=== PATIENT | female | born 1985 | race Two or more races ===

== ENCOUNTER 2024-10-17 16:00 | Emergency (ER) | payer OTHER, SELFPAY ==
[2024-10-17 16:01] VITALS: BP 144/96; PULSE 87; RESP 14; TEMP 36.1; O2SAT 100
--- NOTE | 2024-10-17 16:29 | RAD_ITS ---
PROCEDURE: KNEE 3 VIEWS REASON FOR EXAM: Pain TECHNIQUE: Three views left knee COMPARISON: None. FINDINGS: No fracture. No suspicious bone lesion. Normal alignment. No effusion. Soft tissues are unremarkable. RAD/Knee 3 Views IMPRESSION: NEGATIVE KNEE SERIES Reading Location: [facility]
[2024-10-17] MEDS: Acetaminophen 500 MG Tablet 1000 MG PO (16:44)
--- NOTE | 2024-10-17 16:47 | EX.ED.DYSGE1 ---
HPI History of Present Illness Chief Complaint: Lower Extremity Injury Narrative Narrative: Patient is a 39-year-old female with past medical history of seizures on Keppra who presents to the emergency department with a chief complaint of left lower knee and leg pain. Patient states that for the past 3 days she has had increasing pain her doctor sent her here concern for a blood clot. Patient denies any recent travel history denies history of blood clots for self. Patient denies any trauma or injury to the left lower extremity no recent surgeries. PFSH PFSH Home Medications ?Medication ?Instructions ?Recorded ?Last Taken ?Type atorvastatin 10 mg tablet (Lipitor) 10 mg PO DAILY 10/18/21 Unknown History levetiracetam 250 mg tablet 250 mg PO BID 10/18/21 Unknown History (Keppra) Allergy/AdvReac Type Severity Reaction Status Date / Time No Known Allergies Allergy Verified 10/17/24 16:00 Social History Smoking Status: Never smoker ROS ROS ED ROS Narrative Constitutional: Denies any fevers, chills, headaches, lightness, dizziness Cardiovascular: Denies chest pain or palpitations Respiratory: Denies coughing shortness of breath Abdomen: Denies abdominal pain Neurological: Denies numbness, weakness, tingling Musculoskeletal: Complains of left knee and lower extremity pain as noted above Skin: Denies rashes or lesions EXAM Physical Exam Narrative Exam Narrative: General: Patient was lying in bed rest comfortably did not appear to be in acute distress Head: Atraumatic, normocephalic Eyes: PERRL bilaterally, EOMI bilaterally, no conjunctival injection noted Neck: Soft, supple, trachea midline Cardiovascular: Regular rate and rhythm no murmurs gallops rubs noted Respiratory: Clear to auscultation bilaterally Musculoskeletal: Pain with attempted range of motion of her left knee, compartment soft and compressible Extremities: DP pulses +2/4 in the bilateral lower extremities Neurological: Patient following commands and that she was at [facility] years 2024 sensation grossly intact Skin: Mood affect appropriate Const Vital Signs: 10/17/24 16:01 10/17/24 18:00 Temperature 97 F L Temperature Source Temporal Pulse Rate 87 81 Respiratory Rate 14 18 Blood Pressure 144/96 H 136/85 H Blood Pressure Mean 112 102 Pulse Ox 100 99 Oxygen Delivery Method Room Air MDM MDM MDM Narrative Medical decision making narrative: Patient is a 39-year-old female who presented to the emerged part with chief complaint of left knee pain and lower extremity pain and swelling. On the differential diagnose includes but not limited to deep venous thrombosis, superficial venous thrombosis, superficial thrombophlebitis, musculoskeletal strain. Once workup is obtained and reviewed she will be reevaluated. Patient's x-ray of her knee reviewed by myself by radiology showed no acute fracture dislocation no effusions noted. Patient's venous duplex showed no evidence of DVT. Reevaluation the patient after pain medication given she is feeling better. She is advised to ice elevate and rotate Tylenol and ibuprofen [id number]. She is vies follow-up with her primary care physician outpatient setting. She is encouraged return with worsening symptoms and concerns. She and her significant other at bedside are agreeable this plan all question concerns answered she is discharged home in stable condition. Radiography Diagnostic Testing: Clinical Impression(s) from Imaging Studies Knee X-Ray 10/17/24 16:29 IMPRESSION: NEGATIVE KNEE SERIES [facility] Venous Duplex 10/17/24 17:58 IMPRESSION: No evidence of deep venous thrombosis. Reading Location: [id number] Discharge Plan Triage Chief Complaint: Lower Extremity Injury ED Provider: Hakeem Soliz Dx/Rx/DC Orders Clinical Impression: Acute pain of left knee Prescriptions: No Action atorvastatin [Lipitor] 10 mg tablet 10 mg PO DAILY levetiracetam [Keppra] 250 mg tablet 250 mg PO BID Primary Care Provider: Ana Becerril Referrals: Ana Becerril MD [Primary Care Provider] - Activity Restrictions/Additional Instructions: Rotate Tylenol and ibuprofen [id number] for pain control when you do this can take something every 3 hours. Ice, elevate. Your x-ray did not show anything broken. Your ultrasound did not reveal any blood clots. Follow-up your primary care physician and return with worsening symptoms and concerns. Print Language: Kazakh Disposition Disposition: Home, Self Care
--- NOTE | 2024-10-17 17:58 | US_ITS ---
EXAM: VENOUS DUPLEX IMAG/LIMITED/UNI CLINICAL HISTORY: Left leg pain. COMPARISON: None. TECHNIQUE: Venous Doppler examination of both lower extremities was performed. FINDINGS: No evidence of internal echoes within the venous structures of the lower extremity. There is evidence of compression as well as spontaneity and augmentation. US/Venous Duplex Imag/Limited/Uni IMPRESSION: No evidence of deep venous thrombosis. Reading Location: [id number]
[2024-10-17 18:00] VITALS: BP 136/85; PULSE 81; RESP 18; O2SAT 99
[2024-10-17 19:23] VITALS: BP 136/85; PULSE 81; RESP 18; TEMP 36.3; O2SAT 99
== END 2024-10-17 19:25 | disposition home or self-care (01) ==
PROVIDERS: Emergency Provider Emergency Medicine; PCP Internal Medicine; Visit Provider Emergency Medicine
DX: M25.562 Pain in left knee (principal); R56.9 Unspecified convulsions; Z79.899 Other long term (current) drug therapy; M79.606 Pain in leg, unspecified; M79.89 Other specified soft tissue disorders
CPT/HCPCS: 73562; 93971; 99282